=== PATIENT | male | born 1985 | race Caucasian/White ===

== ENCOUNTER 2017-08-15 14:30 | Emergency (ER) | payer SELFPAY ==
[~2017-08-15 14:30] MED LIST: LISI-360 PO; ZOFR4TAB3 SL
[2017-08-15 14:33] VITALS: BP 149/93; PULSE 101; RESP 18; TEMP 98.1; O2SAT 98
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
[2017-08-15] MEDS ORDERED: AMLO10 PO (15:52)
[2017-08-15] MEDS ORDERED: ADDE10 PO (15:52)
[2017-08-15] MEDS ORDERED: XANA1TAB2 PO (15:52)
[2017-08-15] MEDS ORDERED: METHOCARBAMOL 500 MG TAB PO ONE (16:30)
[2017-08-15] MEDS ORDERED: IBUPROFEN 800 MG TAB PO ONE (16:30)
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
== END 2017-08-15 16:57 | disposition left against medical advice (07) ==
LOC: NEPK 14:30
DX: M54.2 Cervicalgia (principal); R06.02 Shortness of breath; Y04.8XXA Assault by other bodily force, initial encounter; I10 Essential (primary) hypertension; Z72.0 Tobacco use; Z88.0 Allergy status to penicillin
CPT/HCPCS: 99283